=== PATIENT | male | born 1990 | race Caucasian/White ===

== ENCOUNTER → 2017-07-16 | Emergency (ER) | payer SELFPAY ==
[2017-07-16 23:21] VITALS: BP 135/81; PULSE 64; TEMP 98.6; BMI 25.8
== END | disposition left against medical advice (07) ==
LOC: JER 23:01
DX: Z53.21 Procedure and treatment not carried out due to patient leaving prior to being seen by health care provider (principal)
CPT/HCPCS: 99281-25

== ENCOUNTER 2018-07-20 17:47 | Emergency (ER) | payer BC ==
[2018-07-20 17:51] VITALS: TEMP 98; BMI 25.0
--- NOTE | 2018-07-20 18:10 | PDOC ---
History of Present Illness - General Chief Complaint: Constipation Stated Complaint: CONSTIPATION FOR ONE WEEK Time Seen by Provider: 07/20/18 18:07 - History of Present Illness Initial Comments: 07/20/18 18:39 The patient is a 28 year old male with a history of IBS who presents for evaluation of constipation. The patient reports a 1 week history of constipation. He notes that he usually has diarrhea from his IBS, however has been having increasing urgency and a sensation of needing to deficate without any stool when he attempts. He had an outpatient CT scan with PO contrast 1 day ago but has not gotten the results as of yet. He notes that he recently traveled to [facility] over a week ago as well. He notes some epigastric abdominal pain as well with radiation to the LLQ that he describes as a twisting sensation and denies any exacerbating or relieving factors. He otherwise denies fevers, chills, SOB, chest pain, nausea, vomiting, blood in his stool, or changes with urination. Past History - Past Medical History Allergies/Adverse Reactions: Allergies Allergy/AdvReac Type Severity Reaction Status Date / Time No Known Allergies Allergy Verified 07/20/18 17:51 Home Medications: Ambulatory Orders Cholecalciferol (Vitamin D3) [Vitamin D3 -] 2,000 unit PO DAILY 07/20/18 Ergocalciferol (Vitamin D2) [Vitamin D2] 50,000 unit PO WEEKLY 07/20/18 Polyethylene Glycol 3350 [Miralax (For Daily Use) -] 17 gm PO DAILY #1 bottle COPD: No - Suicide/Smoking/Psychosocial Hx Smoking History: Never smoked Have you smoked in the past 12 months: No Hx Alcohol Use: No Drug/Substance Use Hx: No Substance Use Type: None Review of Systems - Review of Systems Comments:: 07/20/18 18:42 Constitutional: No fevers, chills, fatigue, malaise HEENT: No Rhinorrhea, nasal congestion, visual changes Cardiovascular: No chest pain, syncope, palpitations, lightheadedness Respiratory: No Cough, SOB, Hemoptysis, Gastrointestinal: Abdominal pain, Constipation. No Nausea, Vomiting, Diarrhea , Melena Genitourinary: No Dysuria, Frequency, Urgency, Hesitancy, Hematuria, Flank pain Musculoskeletal: No Myalgia, arthralgia Skin: No rashes, itching, bruising, pallor Neurologic: No Headache, Dizziness, Numbness, Weakness, or Tingling Psychiatric: No Hallucinations. No SI or HI *Physical Exam - Vital Signs Last Vital Signs Temp Pulse Resp BP Pulse Ox 98 F 84 18 132/81 99 07/20/18 17:48 07/20/18 17:48 07/20/18 17:48 07/20/18 17:48 07/20/18 17:48 - Physical Exam Comments: 07/20/18 18:44 General Appearance: Nourished. No Apparent Distress HEENT: No Pharyngeal Erythema, Tonsillar Exudate, Tonsillar Erythema Neck: No Cervical Lymphadenopathy Respiratory/Chest: Lungs Clear, Normal Breath Sounds. No Crackles, Rales, Rhonchi, Wheezing Cardiovascular: Regular Rhythm, Regular Rate. No Murmur, Gallops, Rubs Gastrointestinal/Abdominal: Normal Bowel Sounds, Soft. Diffuse discomfort with palpation on exam. No Guarding, Rebound, Musculoskeletal: No CVA Tenderness Extremity: Normal Capillary Refill Integumentary: Normal Color, Dry, Warm Neurologic: Fully Oriented, Alert, Normal Mood/Affect, Normal Response, ED Treatment Course - LABORATORY CBC & Chemistry Diagram: 07/20/18 18:50 07/20/18 18:50 Medical Decision Making - Medical Decision Making 07/20/18 18:45 The patient is a 28 year old male with a history of IBS who presents for evaluation of constipation. Differential includes but is not limited to: Gastritis, Pancreatitis, Constipation, IBS, IBD, Infectious, Metabolic Derangement. Given the patient's history and physical exam, we will obtain a cbc, cmp, esr, crp, lipase to evaluate further. We will treat with iv fluids and pepcid and continue to monitor and reassess while here in the ED. 07/20/18 20:14 CBC, cmp, lipase are unremarkable. Preliminary read on CT abdomen/pelvis performed 1 day ago is unremarkable. There is no stool in the rectal vault on digital rectal exam. The patient was reassessed and reports some improvement in their symptoms. He has a non-tender abdomen on exam and appears well clinically. We are comfortable discharging the patient home in stable condition. Patient and family made aware of impression and plan, return precautions discussed including but not limited to worsening pain or symptoms, fevers, or signs of infection, chest pain, respiratory distress, inability to tolerate oral intake, dehydration, syncope, or neurologic changes. The patient is to follow up with PMD and GI specialist as recommended within 1 week, follow up information provided and the patient will call for an appointment. The patient is to take medications as instructed for duration of time and continue with supportive care, avoid triggers and precipitants. Patient is safe for outpatient follow-up. *DC/Admit/Observation/Transfer Diagnosis at time of Disposition: Abdominal pain Qualifiers: Abdominal location: unspecified location Qualified Code(s): R10.9 - Unspecified abdominal pain - Discharge Dispostion Disposition: HOME Condition at time of disposition: Stable - Prescriptions Prescriptions: Polyethylene Glycol 3350 [Miralax (For Daily Use) -] 17 gm PO DAILY #1 bottle - Referrals Referrals: Laura Stone MD [Primary Care Provider] - Trell Avendano MD [Staff Physician] - - Patient Instructions Printed Discharge Instructions: DI for Abdominal Pain-Adult, DI for Constipation Additional Instructions: 1) Please follow-up with your primary care doctor and GI Specialist Dr. Avendano in the next 2-3 days. Please call tomorrow to schedule a follow up appointment. If you cannot follow up with your doctor within 1 week please return to the Emergency Department for any urgent issues. 2) Your laboratory / imaging results were normal here in the ER. 3) If you have any worsening of symptoms or any other concerns please return to the ER immediately. Return if worsening symptoms including fevers, headache, vomiting, visual or hearing disturbances, abdominal pain, chest pain, shortness of breath, syncope, dehydration, inability to take things by mouth/vomiting, altered mental status, or worsening concerning symptoms. 4) Please continue taking your home medications as directed. Your medications on discharge include Miralax. - Post Discharge Activity
[2018-07-20] MEDS ORDERED: SODIUM CHLORIDE 1,000 ML IV STA (18:34)
[2018-07-20] MEDS ORDERED: FAMOTIDINE 20 MG/50 ML IVPB 20 MG/50 ML MG IVPB ONE ×2 (18:34→18:55)
--- NOTE | 2018-07-20 18:58 | PDOC ---
Attending Attestation - Resident Resident Name: Candelario Bullard - ED Attending Attestation I have performed the following: I have examined & evaluated the patient, The case was reviewed & discussed with the resident, I agree w/resident's findings & plan, Exceptions are as noted - HPI HPI: 07/20/18 19:21 The patient is a 28 year old male, with a significant PMH of IBS who presents to the emergency department with constipation and epigastric pain for the past week. Patient is currently experiencing an urge to have a bowel movement every hour, and last hda a BM of a small ball a few hours ago. Patient states he went to [place] for 1 week prior to experiencing this constipation. Patient notes the epigastric abdominal pain radiates to the left lower quadrant, which he describes as a twisting sensation and is intermittent. Patient denies any changes in diet while in [facility]. He reports typically having anywhere from 2 to 4 bowel movements per day. Patient took 2 doses of OTC laxatives, but denies any bowel movements. Patient follows up with Dr. Avendano, gastroenterology. Patient had an colonoscopy in [facility], which was found to be normal. Patient also had an abdominal CT done yesterday, which was found to be normal. The patient denies chest pain, shortness of breath, headache and dizziness. Denies fever, chills, nausea, vomit. Denies dysuria, frequency, urgency and hematuria. Allergies: NKA Past surgical history: None reported. Social history: No reported alcohol, drug or cigarette use. PCP: Dr. Laura Stone - Physicial Exam PE: 07/20/18 19:22 General: no acute distress, comfortable, well nourished Abd: soft nontender, no massess, no rebound/guarding - Medical Decision Making 07/20/18 18:47 ?constipation vs ibs no stool in rectal vault - no utility for enema no abd tenderness on exam anticipate dc with gi fu can recommend lactulose as outpatient 07/20/18 20:11 labs reviewed pt feelig improved will dc with GI fu
[2018-07-20 19:25] LABS: ALBUMIN 3.5 g/dl (3.4-5.0); ALK PHOS 132 U/L (45-117); ANION GAP 6 MMOL/L (8-16); BILIRUBIN,TOTAL 0.4 mg/dL (0.2-1); BLOOD UREA NITROGEN 11 mg/dL (7-18); CALCIUM 8.2 mg/dL (8.5-10.1); CHLORIDE 106 mmol/L (98-107); CO2 28 mmol/L (21-32); CREATININE 0.9 mg/dL (0.55-1.3); GLUCOSE,RANDOM 90 mg/dL (74-106); LIPASE 144 U/L (73-393); POTASSIUM 3.7 mmol/L (3.5-5.1); SGOT/AST 28 U/L (15-37); SGPT/ALT 64 U/L (13-61); SODIUM 139 mmol/L (136-145); TOT PROT 7.3 g/dl (6.4-8.2)
[2018-07-20 19:55] LABS: BASO % 0.4 % (0-2.0); EOS % 2.6 % (0-4.5); HEMATOCRIT 45.2 % (35.4-49); HEMOGLOBIN 15.5 GM/dL (11.7-16.9); LYMPH % 28.6 % (8-40); MCH 28.7 pg (25.7-33.7); MCHC 34.3 g/dl (32.0-35.9); MEAN CELL VOLUME 83.5 fl (80-96); MEAN PLT VOLUME 6.8 fl (7.5-11.1); MONO % 14.1 % (3.8-10.2); NEUT % 54.3 % (42.8-82.8); PLATELET COUNT 412 K/MM3 (134-434); RBC 5.41 M/mm3 (4.00-5.60); RDW 12.3 % (11.9-15.9); WHITE BLOOD COUNT 6.9 K/mm3 (4.0-10.0)
[2018-07-20 20:42] VITALS: BP 113/71; PULSE 71
[2018-07-20 20:44] LABS: ERYTHROCYTE SEDIMENTATION RATE 10 mm/hr (0-10)
== END 2018-07-20 20:42 | disposition home or self-care (01) ==
LOC: JER 17:47
PROC: 3E033GC Introduction of Other Therapeutic Substance into Peripheral Vein, Percutaneous Approach (ICD-10-PCS; principal; 2018-07-20)
DX: K59.00 Constipation, unspecified (principal); Z87.19 Personal history of other diseases of the digestive system
CPT/HCPCS: 36415; 80053; 83690; 85025; 85651; 86140; 99282-25; J7030